=== PATIENT | male | born 1975 | race Caucasian/White ===

== ENCOUNTER → 2019-11-19 12:27 | Outpatient (BNVA) | payer OTHER, SELFPAY | PROVIDERS: Family Provider Nurse Practitioner Family; PCP Nurse Practitioner Family; Visit Provider Psychiatry & Neurology Neurology | DX: G40.909 Epilepsy, unspecified, not intractable, without status epilepticus (principal); F17.210 Nicotine dependence, cigarettes, uncomplicated | CPT/HCPCS: 99213 ==

== ENCOUNTER → 2020-03-22 16:20 | Outpatient (BNVA) | payer OTHER, SELFPAY | PROVIDERS: Family Provider Nurse Practitioner Family; PCP Nurse Practitioner Family; Visit Provider Nurse Practitioner Family | DX: N39.0 Urinary tract infection, site not specified (principal); K57.92 Diverticulitis of intestine, part unspecified, without perforation or abscess without bleeding | CPT/HCPCS: 81000 ==

== ENCOUNTER → 2020-05-22 13:16 | Outpatient (BNVA) | payer OTHER, SELFPAY | PROVIDERS: Family Provider Nurse Practitioner Family; PCP Nurse Practitioner Family; Visit Provider Psychiatry & Neurology Neurology | DX: G40.909 Epilepsy, unspecified, not intractable, without status epilepticus (principal); F17.210 Nicotine dependence, cigarettes, uncomplicated | CPT/HCPCS: 99213 ==

== ENCOUNTER → 2020-09-14 10:55 | Outpatient (BNVA) | payer OTHER, SELFPAY | PROVIDERS: Family Provider Nurse Practitioner Family; PCP Nurse Practitioner Family; Visit Provider Nurse Practitioner Family | DX: Z20.828 Contact with and (suspected) exposure to other viral communicable diseases (principal) | CPT/HCPCS: 87635 ==

== ENCOUNTER → 2021-03-09 11:24 | Outpatient (BNVA) | payer OTHER, SELFPAY | PROVIDERS: Family Provider Nurse Practitioner Family; PCP Nurse Practitioner Family; Visit Provider Specialist | DX: G40.109 Localization-related (focal) (partial) symptomatic epilepsy and epileptic syndromes with simple partial seizures, not intractable, without status epilepticus (principal); G40.309 Generalized idiopathic epilepsy and epileptic syndromes, not intractable, without status epilepticus; F17.210 Nicotine dependence, cigarettes, uncomplicated | CPT/HCPCS: 99214 ==

== ENCOUNTER → 2021-03-30 13:01 | Outpatient (BNVA) | payer OTHER, SELFPAY | PROVIDERS: Family Provider Nurse Practitioner Family; PCP Nurse Practitioner Family; Visit Provider Specialist | DX: G40.109 Localization-related (focal) (partial) symptomatic epilepsy and epileptic syndromes with simple partial seizures, not intractable, without status epilepticus (principal); G40.309 Generalized idiopathic epilepsy and epileptic syndromes, not intractable, without status epilepticus; F17.210 Nicotine dependence, cigarettes, uncomplicated | CPT/HCPCS: 95816 ==

== ENCOUNTER → 2023-09-20 11:02 | Outpatient (BNVA) | payer OTHER, SELFPAY | PROVIDERS: Family Provider Nurse Practitioner Family; PCP Nurse Practitioner; Visit Provider Nurse Practitioner Family | DX: R68.89 Other general symptoms and signs (principal); J01.90 Acute sinusitis, unspecified; B96.89 Other specified bacterial agents as the cause of diseases classified elsewhere | CPT/HCPCS: 87400; 87426 ==

== ENCOUNTER → 2023-11-02 11:48 | Outpatient (BNVA) | payer OTHER, SELFPAY | PROVIDERS: Family Provider Nurse Practitioner Family; PCP Nurse Practitioner Family; Visit Provider Nurse Practitioner Family | DX: Z13.6 Encounter for screening for cardiovascular disorders (principal); Z79.899 Other long term (current) drug therapy; R53.83 Other fatigue | CPT/HCPCS: 80053; 80061; 81003; 83036; 84443; 85025 ==

== ENCOUNTER 2025-09-18 13:24 | Emergency (ER) | payer OTHER, SELFPAY ==
[2025-09-18] VITALS (7 sets, daily range): BP systolic 127–147; BP diastolic 93–108; PULSE 100–139; RESP 16–21; TEMP 36.9; O2SAT 88–94
--- NOTE | 2025-09-18 13:29 | CT_ITS ---
WS: [id number] CT CERVICAL TRAUMA TECHNIQUE: Noncontrast CT of the cervical spine with coronal and sagittal reformatted images. CLINICAL INFORMATION: trauma COMPARISON: None. DLP: 1366.[address] scans at [facility] use at least one of these dose optimization techniques: automated exposure control; mA and/or kV adjustment per patient size (includes targeted exams where dose is matched to clinical indication); or iterative reconstruction. FINDINGS: Straightening of the normal cervical lordosis. Normal craniocervical junction. Normal C1-C2 articulation. Dens is normal in appearance. Normal occipital condyles. Normal C1 ring. No evidence of acute fracture or dislocation. Small central disc osteophyte complex C4-5 with mild central canal stenosis. Normal prevertebral soft tissues. Mastoids air cells are well aerated. CT/CT cervical spin wo con* [id number] IMPRESSION: No evidence of acute fracture or dislocation.
--- NOTE | 2025-09-18 13:30 | CT_ITS ---
WS: [id number] CT HEAD TECHNIQUE: Noncontrast CT of the head obtained from the skullbase to the vertex. CLINICAL INFORMATION: trauma - fall during seizure COMPARISON: None. DLP: 1366.[address] scans at [facility] use at least one of these dose optimization techniques: automated exposure control; mA and/or kV adjustment per patient size (includes targeted exams where dose is matched to clinical indication); or iterative reconstruction. FINDINGS: No evidence of intracranial hemorrhage or mass effect. Ventricular system and basal cisterns are patent. No extra-axial fluid collections. No evidence of mass or mass effect. Normal nieves-white differentiation. Mild mucosal thickening in the paranasal sinuses. Mastoid air cells are well aerated. Suspected distal nasal tuft and RIGHT nasal bone fractures with minimal irregularity at the nasal tuft. Soft tissue edema overlying the nasal bones partially visualized. CT/CT head wo con* [id number] IMPRESSION: 1. No evidence of intracranial hemorrhage or mass effect. 2. Suspected distal nasal tuft and RIGHT nasal bone fractures with minimal irr egularity at the nasal tuft. 3. No acute intracranial findings.
[2025-09-18 13:36] LABS: Hematocrit 43.8 % (37-53); Hemoglobin 15.30 g/dL (11.27-16.99); Mean Corpuscular HGB Conc 34.9 g/dL (30-55); Mean Corpuscular Hemoglobin 33.5 pg (27-33); Mean Corpuscular Volume 95.8 fl (82-101); Nucleated Red Blood Cells % 0 %; Platelet Count 176 10^3/cmm (157-399); Red Blood Count 4.57 10^6/uL (3.85-5.65); White Blood Count 9.44 10^3/uL (3.29-11.43)
--- NOTE | 2025-09-18 13:57 | XR_ITS ---
WS: [id number] Portable AP upright chest, 09/18/2025 Clinical Data: dyspnea/cough Comparison: None. Findings: No nodules, masses or effusions are seen. The heart is normal. The pulmonary vascularity is not increased. No pneumonia or pneumothorax is seen. Monitor leads are on the chest wall. XR/XR chest 1V portable [id number] Impression: Negative chest.
--- NOTE | 2025-09-18 13:57 | XR_ITS ---
WS: [id number] Nasal bones, 3 views, 09/18/2025 Clinical Data: trauma Comparison: None. Findings: The nasal bone and nasal spine are intact. No air-fluid levels are seen in the maxillary sinuses but there is mucoperiosteal thickening probably from chronic sinusitis. The orbits appear intact. XR/XR nasal bones min 3V [id number] Impression: Negative nasal bones and nasal spine.
--- OUTSIDE RECORDS SUMMARY | 2025-09-18 13:59 | XMS_ITS | Clinical Summary ---
Author Organization [facility] Address [address] [place] [address] Phone Care Team Providers Care Dog Control Officer Name Role Phone Erica Villegas [facility] Primary Care Provi brenton Allergies No known active allergies Medications lacosamide (VIMPAT) 150 mg tablet Take 150 mg by mouth 2 times daily. Active Active Problems Problem Noted Date Diagnosed Date Cigarette dependence 04/09/2016 Social History Tobacco Use Types Packs/Day Years Used Date Smoking Tobacco: Every Day Cigarettes Smokeless Tobacco: Current Chew Alcohol Use Standard Drinks/Week Comments Yes 0 (1 standard drink = 0.6 oz pur e alcohol) occasional Sex and Gender Information Value Date Recorded Sex Assigned at Not on file Legal Sex Male 8:36 AM CDT Gender Identity Not on file Sexual Orientation Not on file Last Filed Vital Signs Vital Sign Reading Time Taken Comments Blood Pressure 141/90 12/30/2018 8:01 PM CDT Pulse 101 12/30/2018 6:52 PM CDT Temperature 37.1 C (98.8 F) 12/30/2018 8:01 PM CDT Respiratory Rate 18 12/30/2018 8:01 PM CDT Oxygen Saturation 97% 12/30/2018 8:01 PM CDT Inhaled Oxygen Concentration - - Weight 90.1 kg (198 lb 9.6 oz) 10/20/2017 9:32 A M UNIVERSAL GRINDER OPERATOR Height 162.6 cm (5' 4 ) 10/20/2017 9:32 AM UNIVERSAL GRINDER OPERATOR Body Mass Index 34.09 10/20/2017 9:32 AM UNIVERSAL GRINDER OPERATOR Plan of Treatment Health Maintenance Due Date Last Done Comments DTAP/TDAP/TD VACCINES (1 - Tdap) 1996 HEPATITIS B VACCINES (1 of 3 - 19+ 3-dose series) 08/02 COLORECTAL SCREENING 2022 Colorectal Cancer Screening 2022 FIT-DNA Q 3 years 2022 FIT/FOBT Q 1 year 2022 Flex Sig/CT Colonography Q 5 years 2022 INFLUENZA VACCINE (#1) 2025 Insurance [employer] Care Teams Dog Control Officer Relationship Specialty Start Date End Date Erica Villegas FNP PCP - General NURSE PRACTITIONER 04/21/15
--- OUTSIDE RECORDS SUMMARY | 2025-09-18 13:59 | XMS_ITS | Clinical Summary ---
Author Organization [facility] Address [address] Attn: Epic Prelude ADT JERMAINE KEITH [address] Care Team Providers Care Interior Design Instructor Name Role Phone Erica Villegas [facility] Primary Care Provi b[place]on Allergies No known active allergies Medications lacosamide (VIMPAT) 150 mg tablet Take 150 mg by mouth 2 times daily. 04/09/2016 Active Active Problems Problem Noted Date Diagnosed Date Cigarette dependence 04/09/2016 Social History Tobacco Use Types Packs/Day Years Used Date Smoking Tobacco: Every Day Cigarettes Smokeless Tobacco: Current Alcohol Use Standard Drinks/Week Comments Yes 0 (1 standard drink = 0.6 oz pur e alcohol) Sex and Gender Information Value Date Recorded Sex Assigned at Not on file Legal Sex Male 1:40 PM MEAT LOINER Gender Identity Not on file Sexual Orientation Not on file Last Filed Vital Signs Vital Sign Reading Time Taken Comments Blood Pressure 141/90 12/30/2018 8:01 PM CDT Pulse 101 12/30/2018 6:52 PM CDT Temperature 37.1 C (98.8 F) 12/30/2018 8:01 PM CDT Respiratory Rate 18 12/30/2018 8:01 PM CDT Oxygen Saturation - - Inhaled Oxygen Concentration - - Weight 90.1 kg (198 lb 9.6 oz) 10/20/2017 9:32 A M MEAT LOINER Height 162.6 cm (5' 4 ) 10/20/2017 9:32 AM MEAT LOINER Body Mass Index 34.09 10/20/2017 9:32 AM MEAT LOINER Plan of Treatment Health Maintenance Due Date Last Done Comments DTAP/TDAP/TD VACCINES (1 - Tdap) 1996 HEPATITIS B VACCINES (1 of 3 - 19+ 3-dose series) 08/02 COLORECTAL SCREENING 2022 Colorectal Cancer Screening 2022 FIT-DNA Q 3 years 2022 FIT/FOBT Q 1 year 2022 Flex Sig/CT Colonography Q 5 years 2022 INFLUENZA VACCINE (#1) 2025 Care Teams Interior Design Instructor Relationship Specialty Start Date End Date Erica Villegas FNP [address] [place] [id number] PCP - General NURSE PRACTITIONER 04/21/15
--- OUTSIDE RECORDS SUMMARY | 2025-09-18 13:59 | XMS_ITS | Encounter Summary ---
Author Organization [facility] [employer] Address [address] [place] [address] Care Team Providers Care Joist Setter Name Role Phone Erica Villegas [facility] Primary Care Provi [facility] Encounter Details Date Type Department Care Team (Late st Contact Info) Description 04/12/2016 Ancillary Orders [facility] [place] [address] [place] [address] Erica Villegas, [facility] [address] [place] [phone] Rib contusion, right, initial encounter (Primary Dx); Rib pain on right side Social History Tobacco Use Types Packs/Day Years [...] on file Sexual Orientation Not on file documented as of this encounter Plan of Treatment Not on file documented as of this encounter Results * XR RIBS UNILATERAL 2 VW RIGHT (04/12/2016 12:47 PM CDT) Anatomical Region Laterality Modality Chest Computed Radiogr aphy 04/12/2016 12:4 7 PM CDT Impressions 04/12/2016 2:06 PM CDT IMPRESSION: 1. Displaced right rib fracture is not apparent. [id number] Narrative 04/12/2016 2:06 PM CDT Exam: XR RIBS UNILATERAL 2 VW RIGHT Date/Time of Exam: 04/12/2016 12:47 PM Reason For Exam: Rib contusion, right, initial encounter, Rib pain on right side. Findings: Evaluation of the right ribs demonstrates no evidence of displaced right rib fracture. Underlying pneumothorax or pleural effusion is not evident. Trabecular patterns are normal. There are no lytic or blastic changes. Erica [facility] Final Result documented in this encounter Visit Diagnoses Diagnosis Rib contusion, right, initial encounter- Primary Rib pain on right side Chest pain, unspecified Rib contusion, right, initial encounter Rib pain on right side Chest pain, unspecified documented in this encounter Care Teams Joist Setter Relationship Specialty Start Date End Date Erica Villegas FNP PCP - General NURSE PRACTITIONER 04/21/15 documented as of this encounter
--- NOTE | 2025-09-18 14:14 | W.ED.SEIZURE ---
HPI - Seizure General: Chief Complaint: Seizure Stated Complaint: SEIZURE Time Seen by Provider: 09/18/25 13:29 History of Present Illness: HPI Narrative: 50-year-old male with a known history of seizure disorder presents emergency room complaining of having had several breakthrough seizures this week. He has had a cough cold upper respiratory symptoms he taken some Sudafed and had a breakthrough seizure on Monday and then had 2 more episodes today. On arrival here he is tachycardic and mildly postictal. He does have some swelling in his nose from where he fell and hit his face. Associated symptoms: Deny chest pain, chills or fever(s) Related Data Previous Rx's ?Medication ?Instructions ?Recorded amoxicillin 875 mg-potassium 1 tab PO BID 10 days #20 tabs 09/20/23 clavulanate 125 mg tablet fluticasone propionate 50 2 spray intranasal DAILY PRN 09/20/23 mcg/actuation nasal allergy symptoms #16 grams spray,suspension varenicline tartrate 1 mg tablet 1 mg PO BID #60 tabs 02/26/25 (Chantix) lacosamide 150 mg tablet (Vimpat) 150 mg PO BID 90 days #180 tabs 07/21/25 Allergies Allergy/AdvReac Type Severity Reaction Status Date / Time No Known Allergies Allergy Verified 02/26/25 11:37 Review of Systems Const: Denies: fever(s) or chills Card: Denies: chest pain Resp: Denies: dyspnea GI: Denies: abdominal pain : Denies: dysuria, urinary frequency or urinary urgency Musc: Denies: neck pain or back pain Skin/Breast: Denies: rash PFSH ED PFSH: Medical History Acute bacterial sinusitis Anxiety with depression Headache Lower respiratory infection Dyshidrotic eczema Shortness of breath Epilepsy Social History Smoking and tobacco/nicotine status: current every day tobacco/nicotine user Alcohol intake: former Lives independently: Yes Household members: none Physical Exam Const: GENERAL APPEARANCE: cooperative ORIENTATION/CONSCIOUSNESS: Yes awake HENMT: COMMON NORMALS: normocephalic and hearing grossly normal bilaterally HEAD & SCALP: normocephalic OTHER: Swelling across the nose no obvious deformity some signs of mild epistaxis which has already stopped spontaneously Resp: COMMON NORMALS: normal respiratory effort, No retractions, No use of accessory muscles and clear to auscultation bilaterally AUSCULTATION: clear to auscultation bilaterally Cardio: COMMON NORMALS: regular rate, regular rhythm and No murmurs present (Cardio) RATE: regular rate RHYTHM: regular rhythm GI: COMMON NORMALS: Soft to palpation and No hepatosplenomegaly present AUSCULTATION: Yes normoactive bowel sounds PALPATION: Yes Soft to palpation, No Tenderness to palpation present (GI), No Guarding due to palpation present (GI) and Yes No hepatosplenomegaly present Extremity: COMMON NORMALS: normal to inspection, capillary refill normal, no clubbing, cyanosis or edema, no calf tenderness and no pedal edema Skin: COMMON NORMALS: no rashes or lesions noted GENERAL SKIN EXAM: no rashes or lesions noted Course Vital Signs: Vital signs: Vital Signs Temperature 98.5 F 09/18/25 13:12 Pulse Rate 100 09/18/25 18:27 Respiratory Rate 18 09/18/25 17:49 Blood Pressure 133/108 09/18/25 18:27 Pulse Oximetry 94 09/18/25 18:27 Oxygen Delivery Me thod Room Air 09/18/25 17:49 Oxygen Flow Rate 3 09/18/25 13:23 MDM - Seizure MDM Narrative Medical decision making narrative: Medical decision making Social determinants: None I reviewed the patient's medical record. I reviewed the patient's current home meds. Alternate historians: Significant other Differential diagnosis: Breakthrough seizure, closed head injury Lab Review: Labs reviewed as found in the chart CBC unremarkable. D-dimer elevated at 1.42. Chemistries negative. Flu COVID RSV negative Imaging: CTA chest unremarkable CT head negative nasal bone no fracture Assessment of risk Level of risk: Moderate Hospitalization considerations: Considered hospitalization pending CT findings. Reexamination: On repeat exam we are considering discharging the patient however he was noted to be tachycardic and at times she is complaining of some shortness of breath. His oxygen saturation was consistently 93 to 94% D-dimer was done. Assessment and plan: As above at the time of reexam noted the patient remained persistently mildly tachycardic. D-dimer was done and was slightly elevated. CTA chest done and was negative. I think he did have a breakthrough seizure was given a dose of Vimpat. Will discharge him home reviewed findings of the CTs as well as the nasal bone there is no fracture. His oxygen saturations have normalized. When he initially arrived he was satting 80% after a seizure that may have been part of his postictal phase continue his current medications. He had recently been taking Sudafed for upper respiratory symptoms which I think may have contributed to his breakthrough seizure follow-up with his neurologist as soon as he is able return if you have further problems. Lab Data 09/18/25 13:28 09/18/25 14:04 Labs: Radiology Impressions Cervical Spine CT 09/18/25 13:29 IMPRESSION: No evidence of acute fracture or dislocation. Head CT 09/18/25 13:30 IMPRESSION: 1. No evidence of intracranial hemorrhage or mass effect. 2. Suspected distal nasal tuft and RIGHT nasal bone fractures with minimal irregularity at the nasal tuft. 3. No acute intracranial findings. Chest X-Ray 09/18/25 13:57 Impression: Negative chest. Nasal Bones X-Ray 09/18/25 13:57 Impression: Negative nasal bones and nasal spine. Chest CTA 09/18/25 16:39 IMPRESSION: 1. Lungs are clear and there is no pulmonary embolism. 2. Age indeterminate T12 and L1 compression deformities. Correlate with site specific tenderness to assess acuity. 3. Hepatic steatosis. Laboratory Results WBC 9.44 10^3/uL (3.29-11.43) 09/18/25 13:28 RBC 4.57 10^6/uL (3.85-5.65) 09/18/25 13:28 Hgb 15.30 g/dL (11.27-16.99) 09/18/25 13:28 Hct 43.8 % (37-53) 09/18/25 13:28 MCV 95.8 fl (82-101) 09/18/25 13:28 MCH 33.5 pg (27-33) H 09/18/25 13:28 MCHC 34.9 g/dL (30-55) 09/18/25 13:28 RDW 13.3 % (12.1-15.1) 09/18/25 13:28 Plt Count 176 10^3/cmm (157-399) 09/18/25 13:28 MPV 10.2 fL (7.4-10.4) 09/18/25 13:28 Neut % (Auto) 81.5 % 09/18/25 13:28 Lymph % (Auto) 8.5 % 09/18/25 13:28 [place] % (Auto) 8.9 % 09/18/25 13:28 Eos % (Auto) 0.7 % 09/18/25 13:28 Baso % (Auto) 0.1 % 09/18/25 13:28 Neut # (Auto) 7.69 10^3/uL (1.8-7.7) 09/18/25 13:28 Lymph # (Auto) 0.8 10^3/uL (0.8-4.8) 09/18/25 13:28 [place] # (Auto) 0.8 10^3/uL (0.2-0.9) 09/18/25 13:28 Eos # (Auto) 0.1 10^3/uL (0.0-0.8) 09/18/25 13:28 Baso # (Auto) 0.0 10^3/uL (0.0-0.1) 09/18/25 13:28 Nucleated RBC % (auto) 0 % 09/18/25 13: Nucleated RBCs # 0.0 /100WBC 09/18/25 13:28 D-Dimer 1.42 ug/mLFEU (0-0.59) H 09/18/25 14:04 Sodium 139 mmol/L (136-145) 09/18/25 14:04 Potassium 3.9 mmol/L (3.5-5.1) 09/18/25 14:04 Chloride 100 mmol/L (98-107) 09/18/25 14:04 Carbon Dioxide 24 mmol/L (22-29) 09/18/25 14:04 Anion Gap 18.9 (5-19) 09/18/25 14:04 BUN 12 mg/dL (6-20) 09/18/25 14:04 Creatinine 0.9 mg/dL (0.7-1.2) 09/18/25 14:04 GFR Calculation 90.1 mL/min (90-130) 09/18/25 14:04 Glucose 122 mg/dL (65-115) H 09/18/25 14:04 Calculated Osmolality 289 mOsm/kg (285-295) 09/18/25 14:04 Calcium 9.0 mg/dL (8.5-10.5) 09/18/25 14:04 Magnesium 2.1 mg/dL (1.7-2.3) 09/18/25 14:04 Influenza A (PCR) Negative (Negative) 09/18/25 14:26 Influenza Type B (PCR) Negative (Negative) 09/18/25 14:26 RSV (PCR) Negative (Negative) 09/18/25 14:26 SARS-CoV-2 (PCR) Negative (Negative) 09/18/25 14:26 All radiology interpretation(s) finalized by discharge Discharge Plan Discharge Patient Disposition: Home Clinical Impression: Generalized seizure Condition: Stable Prescriptions: No Action varenicline tartrate [Chantix] 1 mg tablet 1 mg PO BID Qty: 60 3RF Rx Instructions: 1/2 in AM 7 d, 1 in am 7 d, then 1 AM 1 after lunch fluticasone propionate 50 mcg/actuation spray,suspension 2 spray intranasal DAILY PRN (Reason: allergy symptoms) Qty: 16 0RF Rx Instructions: administer into each nostril amoxicillin-pot clavulanate 875-125 mg tablet 1 tab PO BID 10 Days Qty: 20 0RF Vimpat 150 mg tablet 150 mg PO BID 90 Days Qty: 180 3RF Discharge Orders: Discharge ED (Routine); Ordered 09/18/25 Ordered By: Bebeto Rinaldi Referrals: HARJINDER Anglin, MATHEMATICAL STATISTICIAN [Primary Care Provider, Family Practice] Discharge Diet: Usual diet Discharge Activity: Increase activity as tolerated Patient Instructions: Opioid Safety, Pain Management, Patient Portal & Lala Instructions Activity Restrictions/Additional Instructions: Thank you for choosing [facility] for your healthcare needs today. It is very important that you follow up as instructed or that you return to the Emergency Department should you have concerns or if your condition changes or worsens in any way. Emergency department visits are focused on emergent conditions, in some cases you may require further evaluation on an outpatient basis. You were seen in the emergency room after a seizure. This is likely related to the upper respiratory infection you have or the [id number] medication you were taking to deal with your symptoms. Recommend avoiding stimulants such as Sudafed. Tylenol or ibuprofen Mucinex as needed for relief of symptoms. Contact your neurologist and discussed with him your recent breakthrough seizures. You were given a single dose of IV lacosamide while in the emergency room continue your previously prescribed medications (Please note that included in your discharge packet is information concerning opioid safety and pain management. This information is given to all patients were discharged from the ER regardless of their discharge diagnosis or the medicines they usually take or are prescribed.) Stand Alone Forms: Work/School Release Print Language: Gibraltarian Coding Level of Care Code ED Medical Staff Credentialing Coordinator for Amelia Razo
[2025-09-18 14:27] LABS: Anion Gap 18.9 (5-19); Blood Urea Nitrogen 12 mg/dL (6-20); Calcium 9.0 mg/dL (8.5-10.5); Carbon Dioxide 24 mmol/L (22-29); Chloride 100 mmol/L (98-107); Glucose 122 mg/dL (65-115); Magnesium 2.1 mg/dL (1.7-2.3); Osmolality Calculated 289 mOsm/kg (285-295); Potassium 3.9 mmol/L (3.5-5.1); Sodium 139 mmol/L (136-145)
[2025-09-18 15:11] LABS: Respiratory Syncytial Virus Ce NEGATIVE (Negative); SARS-CoV-2 PCR NEGATIVE (Negative)
--- NOTE | 2025-09-18 16:39 | CTR_ITS ---
PROCEDURE INFORMATION: Exam: CTA Chest With Contrast Exam date and time: 09/18/2025 4:56 PM Age: 50 years old Clinical indication: Abnormal findings; Abnormal diagnostic tests; Elevated d-dimer TECHNIQUE: Imaging protocol: Computed tomographic angiography of the chest with contrast. Exam focused on the arteries. 3D rendering (Not supervised by radiologist): MIP and/or 3D reconstructed images were created by the technologist. Radiation optimization: All CT scans at this facility use at least one of these dose optimization techniques: automated exposure control; mA and/or kV adjustment per patient size (includes targeted exams where dose is matched to clinical indication); or iterative reconstruction. Contrast material: [id number]; Contrast volume: 100 ml; Contrast route: INTRAVENOUS (IV); COMPARISON: CR XR chest 1V portable [id number] 09/18/2025 2:06 PM RADIATION DOSE METRICS: Total DLP (mGy-cm): 451.02 FINDINGS: Pulmonary arteries: Normal. No pulmonary emboli. Aorta: Unremarkable. No aortic aneurysm. No aortic dissection. Lungs: Unremarkable. No consolidation. No masses. Pleural spaces: Unremarkable. No pneumothorax. No pleural effusion. Heart: Unremarkable. No cardiomegaly. No pericardial effusion. Lymph nodes: Unremarkable. No enlarged lymph nodes. Liver: Hepatic steatosis. Bones/joints: Age indeterminate T12 and L1 compression deformities. Soft tissues: Unremarkable. CT/CT angio chest PE protcl [id number] IMPRESSION: 1. Lungs are clear and there is no pulmonary embolism. 2. Age indeterminate T12 and L1 compression deformities. Correlate with site specific tenderness to assess acuity. 3. Hepatic steatosis.
[2025-09-18] MEDS: iohexol 350 mg/mL 500 mL Btl (per mL) IV (17:10)
== END 2025-09-18 18:35 | disposition home or self-care (01) ==
PROVIDERS: Emergency Provider Family Medicine; Family Provider Nurse Practitioner Family; PCP Nurse Practitioner Family
DX: G40.409 Other generalized epilepsy and epileptic syndromes, not intractable, without status epilepticus (principal); Z11.52 Encounter for screening for COVID-19; Z72.0 Tobacco use
CPT/HCPCS: 36415; 70160; 70450; 71045; 71275; 72125; 80048; 83735; 85025; 85378; 87637; 96365; 99285; C9254; J7030